=== PATIENT | male | born 1965 | race Caucasian/White ===

== ENCOUNTER 2017-03-25 11:10 | Inpatient (IN) | payer OTHER ==
[~2017-03-25] VITALS: Ht 177.8 cm; Wt 86.2 kg
--- NOTE | ~2017-03-25 | EKG ---
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 : 1965 Requested By: Divya March Order Number: [id number] MD: Abelardo Ribeiro Measurements Intervals [place] Rate: 96 P: 59 ID: [id number] QRS: 35 QRSD: 103 T: 13 QT: 364 QTc: 460 Interpretive Statements Sinus rhythm with premature ventricular complex Left atrial enlargement Probable anteroseptal infarct, age indeterminate Compared to ECG 07/22/2016 18:52:23 PBC is now present Electronically Signed On 03-26-2017 8:40:04 CDT by Abelardo Ribeiro [email or web address] <ELECTRONICALLY SIGNED> By: Abelardo Ribeiro MD, [facility] 03/26/17 0840 1119 [id number] Abelardo Ribeiro MD, [facility] /EPI
[~2017-03-25 11:10] MED LIST: CATAPRES0.1 MG PO; METOPROLOL SUCC50 MG PO
[2017-03-25 11:18] VITALS: BP 162/90
[2017-03-25 12:04] LABS: ABSOLUTE NEUTROPHILS 3.3 thou/uL (1.4-8.2); BASOPHILS 1.4 % (0.0-2.0); EOSINOPHILS 2.1 % (0.0-3.0); HEMOGLOBIN 15.2 gm/dL (14.0-18.0); LYMPHOCYTES 27.7 % (24.0-44.0); MCH 31.2 pg (26.0-34.0); MCHC 35.3 g/dL (28.0-37.0); MCV 88.4 fL (80.0-100.0); PLATELET COUNT 272 thou/uL (150-400); POLYS 56.8 % (36.0-66.0); RBC 4.86 mil/uL (4.50-6.00); RDW 16.2 % (10.5-14.5); WBC 5.8 thou/uL (4.0-11.0)
[2017-03-25 12:05] LABS: MANUAL DIFF NO
[2017-03-25 12:07] LABS: CALCIUM 10.6 mg/dL (8.5-10.1); CREATININE 0.9 mg/dL (0.7-1.3); MAGNESIUM 1.5 mg/dL (1.8-2.4); POTASSIUM 3.6 mmol/L (3.5-5.1)
[2017-03-25 15:00] VITALS: BP 152/104
[2017-03-25 21:21] VITALS: BP 163/90
[2017-03-26 01:13] VITALS: BP 170/105
[2017-03-26 08:00] VITALS: BP 152/108
[2017-03-26 11:06] VITALS: BP 138/98
[2017-03-26 15:31] VITALS: BP 146/104
[2017-03-26 19:30] VITALS: BP 138/102
[2017-03-27] VITALS (8 sets, daily range): BP systolic 142–183; BP diastolic 99–117
[2017-03-28 04:16] VITALS: BP 162/113
[2017-03-28 06:05] LABS: AMP/METHAMP Negative (Negative); BARBITURATES POSITIVE (Negative); BENZODIAZEPINES POSITIVE (Negative); COCAINE Negative (Negative); METHADONE Negative (Negative); OPIATES Negative (Negative); PCP Negative (Negative); THC Negative (Negative)
[2017-03-28 06:17] LABS: CREATININE 0.9 mg/dL (0.7-1.3); MAGNESIUM 1.6 mg/dL (1.8-2.4); POTASSIUM 3.3 mmol/L (3.5-5.1)
[2017-03-28 06:21] LABS: CALCIUM 8.6 mg/dL (8.5-10.1)
[2017-03-28 07:08] VITALS: BP 169/97
[2017-03-28] MEDS ORDERED: CATAPRES0.2 MG PO (11:09)
[2017-03-28] MEDS ORDERED: CHLORDIAZEPOXID25 M1 PO (11:10)
[2017-03-28] MEDS ORDERED: VITAMIN B-1100 M2 PO (11:10)
[2017-03-28 11:21] VITALS: BP 169/97
== END 2017-03-28 13:38 | disposition home or self-care (01) | DRG 897 ==
LOC: ER 11:10 → EROBS 13:59 → 4W 13:59
PROVIDERS: Emergency Medicine; Hospitalist
DX: F10.231 Alcohol dependence with withdrawal delirium (principal); I10 Essential (primary) hypertension; F31.9 Bipolar disorder, unspecified; F41.9 Anxiety disorder, unspecified; F12.90 Cannabis use, unspecified, uncomplicated; F17.210 Nicotine dependence, cigarettes, uncomplicated; Y90.0 Blood alcohol level of less than 20 mg/100 ml; Z59.0 Homelessness; Z79.899 Other long term (current) drug therapy
CPT/HCPCS: 10045

== ENCOUNTER 2018-02-15 15:03 | Inpatient (IN) | payer OTHER ==
[2018-02-15] VITALS (30 sets, daily range): BP systolic 110–154; BP diastolic 69–108
[~2018-02-15] VITALS: Ht 177.8 cm; Wt 93.0 kg
[~2018-02-15 15:03] MED LIST changes: +CATAPRES0.2 MG PO; +CHLORDIAZEPOXID25 M1 PO; +VITAMIN B-1100 M2 PO
[2018-02-15 15:55] LABS: BASOPHILS 0.8 % (0.0-2.0); EOSINOPHILS 0.7 % (0.0-3.0); HEMATOCRIT 40.6 % (42.0-52.0); HEMOGLOBIN 14.1 gm/dL (14.0-18.0); LYMPHOCYTES 20.1 % (24.0-44.0); MCH 29.4 pg (26.0-34.0); MCHC 34.9 g/dL (28.0-37.0); MCV 84.3 fL (80.0-100.0); MONOCYTES 5.4 % (1.0-8.0); PLATELET COUNT 179 thou/uL (150-400); RBC 4.81 mil/uL (4.50-6.00); RDW 13.4 % (10.5-14.5); WBC 13.8 thou/uL (4.0-11.0)
[2018-02-15 16:03] LABS: CALCIUM 8.2 mg/dL (8.5-10.1)
[2018-02-15 16:06] LABS: POTASSIUM 2.9 mmol/L (3.5-5.1)
[2018-02-15 16:09] LABS: ALBUMIN 3.4 g/dL (3.4-5.0); DIRECT BILIRUBIN 0.3 mg/dL (<0.1-0.3); TOTAL BILIRUBIN 1.1 mg/dL (<0.1-1.0); TOTAL PROTEIN 6.3 g/dL (6.4-8.2)
[2018-02-15 16:43] LABS: PHOSPHORUS 2.7 mg/dL (2.5-4.9)
[2018-02-15 17:11] LABS: FOLIC ACID 14.5 ng/mL (8.6-58.9)
[2018-02-16] VITALS (41 sets, daily range): BP systolic 129–174; BP diastolic 76–109
[2018-02-16 01:31] LABS: URINE BILIRUBIN NEGATIVE (Negative); URINE BLOOD 1+ (Negative); URINE CLARITY CLEAR; URINE COLOR YELLOW; URINE GLUCOSE-RANDOM* NEGATIVE (Negative); URINE KETONES TRACE (Negative); URINE LEUKOCYTES NEGATIVE (Negative); URINE NITRITE NEGATIVE (Negative); URINE PROTEIN (DIPSTICK) 1+ (Negative); URINE UROBILINOGEN 0.2 E.U./dl (0.2-1.0)
[2018-02-16 01:38] LABS: BACTERIA None Seen /HPF (None Seen); CASTS None Seen /LPF (None Seen); CRYSTALS None Seen /LPF (None Seen); MUCUS 0-3 Light strn/LPF (None Seen); SQUAMOUS None Seen /LPF (0-3); URINE RBC 0-2 Rare /HPF (0-2); URINE WBC None Seen /HPF (0-5)
[2018-02-16 01:39] LABS: AMP/METHAMP Negative (Negative); BARBITURATES Negative (Negative); BENZODIAZEPINES Negative (Negative); COCAINE Negative (Negative); METHADONE Negative (Negative); OPIATES Negative (Negative); PCP Negative (Negative)
[2018-02-16 04:39] LABS: ABSOLUTE NEUTROPHILS 9.3 thou/uL (1.4-8.2); EOSINOPHILS 1.7 % (0.0-3.0); HEMATOCRIT 40.9 % (42.0-52.0); LYMPHOCYTES 15.6 % (24.0-44.0); MCH 29.4 pg (26.0-34.0); MCHC 34.2 g/dL (28.0-37.0); MCV 86.1 fL (80.0-100.0); PLATELET COUNT 153 thou/uL (150-400); POLYS 76.7 % (36.0-66.0); RBC 4.76 mil/uL (4.50-6.00); WBC 12.1 thou/uL (4.0-11.0)
[2018-02-16 04:52] LABS: CALCIUM 8.4 mg/dL (8.5-10.1); CREATININE 0.9 mg/dL (0.7-1.3); POTASSIUM 3.4 mmol/L (3.5-5.1)
[2018-02-17] VITALS (14 sets, daily range): BP systolic 139–167; BP diastolic 84–102
[2018-02-17 03:54] LABS: CALCIUM 8.2 mg/dL (8.5-10.1); CREATININE 0.7 mg/dL (0.7-1.3); MAGNESIUM 1.6 mg/dL (1.8-2.4); PHOSPHORUS 1.9 mg/dL (2.5-4.9); POTASSIUM 3.1 mmol/L (3.5-5.1)
== END 2018-02-17 14:25 | disposition left against medical advice (07) | DRG 101 ==
LOC: ER 15:03 → ICU 15:55 → EROBS 15:55 → 4E 16:53 → ICU 16:58
PROVIDERS: Emergency Medicine; Family Medicine
DX: R56.9 Unspecified convulsions (principal); F10.221 Alcohol dependence with intoxication delirium; F10.231 Alcohol dependence with withdrawal delirium; I10 Essential (primary) hypertension; F17.210 Nicotine dependence, cigarettes, uncomplicated; F31.9 Bipolar disorder, unspecified; F41.9 Anxiety disorder, unspecified; E87.6 Hypokalemia; Z53.21 Procedure and treatment not carried out due to patient leaving prior to being seen by health care provider; Z91.19 Patient's noncompliance with other medical treatment and regimen; Z59.0 Homelessness
CPT/HCPCS: 10203

== ENCOUNTER 2019-10-28 15:24 | Emergency (ER) | payer OTHER ==
[~2019-10-28] VITALS: Ht 177.8 cm; Wt 95.3 kg
[2019-10-28 16:12] LABS: HEMATOCRIT 47.4 % (42.0-52.0); HEMOGLOBIN 16.2 gm/dL (14.0-18.0); MCH 29.8 pg (26.0-34.0); MCHC 34.2 g/dL (28.0-37.0); MCV 87.3 fL (80.0-100.0); RBC 5.42 mil/uL (4.50-6.00); RDW 13.3 % (10.5-14.5); WBC 11.6 thou/uL (4.0-11.0)
[2019-10-28 16:14] LABS: ANION GAP 8 mmol/L (7-16); BUN 13 mg/dL (7-18); CALCIUM 9.1 mg/dL (8.5-10.1); CHLORIDE 107 mmol/L (98-107); CO2 24 mmol/L (21-32); GLUCOSE 111 mg/dL (74-106); POTASSIUM 3.5 mmol/L (3.5-5.1); SODIUM 139 mmol/L (136-145)
[2019-10-28 16:19] LABS: ALBUMIN 4.2 g/dL (3.4-5.0); DIRECT BILIRUBIN < 0.1 mg/dL (<0.1-0.2); SGOT 24 U/L (15-37); SGPT 33 U/L (30-65); TOTAL BILIRUBIN 0.4 mg/dL (<0.1-1.0); TOTAL PROTEIN 7.7 g/dL (6.4-8.2)
[2019-10-28 16:27] LABS: AMP/METHAMP Negative (Negative); BARBITURATES Negative (Negative); BENZODIAZEPINES Negative (Negative); COCAINE Negative (Negative); METHADONE Negative (Negative); OPIATES Negative (Negative); PCP Negative (Negative)
[2019-10-29 16:45] VITALS: BP 154/98
== END 2019-10-29 17:08 | disposition psychiatric hospital, planned readmission (93) ==
LOC: ER 15:24
PROVIDERS: Emergency Medicine
DX: R45.851 Suicidal ideations (principal); I10 Essential (primary) hypertension; F31.9 Bipolar disorder, unspecified; F17.210 Nicotine dependence, cigarettes, uncomplicated

== ENCOUNTER 2020-03-01 14:35 | Emergency (ER) | payer OTHER ==
[~2020-03-01] VITALS: Ht 177.8 cm; Wt 93.0 kg
[2020-03-01 15:05] LABS: ABSOLUTE NEUTROPHILS 11.5 thou/uL (1.4-8.2); BASOPHILS 0.8 % (0.0-2.0); EOSINOPHILS 0.4 % (0.0-3.0); HEMATOCRIT 47.2 % (42.0-52.0); HEMOGLOBIN 16.6 gm/dL (14.0-18.0); LYMPHOCYTES 20.2 % (24.0-44.0); MCH 30.4 pg (26.0-34.0); MCHC 35.1 g/dL (28.0-37.0); MCV 86.6 fL (80.0-100.0); MONOCYTES 5.2 % (1.0-8.0); PLATELET COUNT 276 thou/uL (150-400); POLYS 73.4 % (36.0-66.0); RBC 5.45 mil/uL (4.50-6.00); RDW 13.7 % (10.5-14.5); WBC 15.7 thou/uL (4.0-11.0)
[2020-03-01 15:12] LABS: URINE BILIRUBIN NEGATIVE (Negative); URINE BLOOD 1+ (Negative); URINE CLARITY CLEAR; URINE COLOR YELLOW; URINE GLUCOSE-RANDOM* NEGATIVE (Negative); URINE KETONES 1+ (Negative); URINE LEUKOCYTES-REFLEX NEGATIVE (Negative); URINE NITRITE-REFLEX NEGATIVE (Negative); URINE PROTEIN (DIPSTICK) 2+ (Negative); URINE SPECIFIC GRAVITY >= 1.030 (1.005-1.035); URINE UROBILINOGEN 0.2 E.U./dl (0.2-1.0)
[2020-03-01 15:14] LABS: ANION GAP 15 mmol/L (7-16); BUN 29 mg/dL (7-18); CHLORIDE 106 mmol/L (98-107); CO2 22 mmol/L (21-32); CREATININE 1.1 mg/dL (0.7-1.3); GLUCOSE 105 mg/dL (74-106); POTASSIUM 3.4 mmol/L (3.5-5.1); SODIUM 143 mmol/L (136-145)
[2020-03-01 15:20] LABS: AMP/METHAMP Negative (Negative); BARBITURATES Negative (Negative); BENZODIAZEPINES Negative (Negative); COCAINE Negative (Negative); METHADONE Negative (Negative); OPIATES Negative (Negative); PCP Negative (Negative); URINE RBC 0-2 Rare /HPF (0-2)
[2020-03-01 15:21] LABS: BACTERIA-REFLEX 1-9 Few /HPF (None Seen); CRYSTALS None Seen /LPF (None Seen); HYALINE CASTS 0-3 Few /LPF (None Seen); SQUAMOUS 0-3 Few /LPF (0-3); URINE WBC-REFLEX None Seen /HPF (0-5)
[2020-03-01 15:23] LABS: ALBUMIN 3.8 g/dL (3.4-5.0); SGOT 44 U/L (15-37); SGPT 45 U/L (30-65); TOTAL BILIRUBIN 0.6 mg/dL (<0.1-1.0); TOTAL PROTEIN 7.1 g/dL (6.4-8.2); TROPONIN-I <0.06 ng/mL (<0.06)
[2020-03-01 16:24] VITALS: BP 163/83
== END 2020-03-01 16:24 | disposition home or self-care (01) ==
LOC: ER 14:35
PROVIDERS: Nurse Practitioner Family
DX: S09.90XA Unspecified injury of head, initial encounter (principal); F10.920 Alcohol use, unspecified with intoxication, uncomplicated; R41.82 Altered mental status, unspecified; I10 Essential (primary) hypertension; F31.9 Bipolar disorder, unspecified; F17.210 Nicotine dependence, cigarettes, uncomplicated; W21.03XA Struck by baseball, initial encounter; Y93.89 Activity, other specified; Y92.89 Other specified places as the place of occurrence of the external cause; Y99.8 Other external cause status

== ENCOUNTER 2020-03-01 18:49 | Emergency (ER) | payer OTHER ==
[~2020-03-01] VITALS: Ht 152.4 cm; Wt 93.0 kg
[2020-03-01 20:14] VITALS: BP 144/83
--- NOTE | 2020-03-02 08:07 | EKG ---
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 : 1965 Requested By: Teresa Forbes Order Number: [id number] MD: Ko Whaley Measurements Intervals [place] Rate: 91 P: 34 [place]: 184 QRS: -8 QRSD: 101 T: 9 QT: 357 QTc: 440 Interpretive Statements Sinus rhythm Left atrial enlargement Probable anteroseptal infarct, recent Baseline wander in lead(s) V3 Compared to ECG 03/25/2017 11:19:55 Ventricular premature complex(es) no longer present Myocardial infarct finding still present Electronically Signed On 03-02-2020 8:05:39 CDT by Ko Whaley [email or web address] <ELECTRONICALLY SIGNED> By: Ko Whaley MD 03/02/20804 57 57 Ko Whaley MD /EPI
== END 2020-03-01 20:21 | disposition home or self-care (01) ==
LOC: ER 18:49
DX: F10.239 Alcohol dependence with withdrawal, unspecified (principal); F41.0 Panic disorder [episodic paroxysmal anxiety]; R06.00 Dyspnea, unspecified; R41.82 Altered mental status, unspecified; I10 Essential (primary) hypertension; F31.9 Bipolar disorder, unspecified; F17.210 Nicotine dependence, cigarettes, uncomplicated; Z59.0 Homelessness

== ENCOUNTER 2020-03-22 22:59 | Emergency (ER) | payer OTHER ==
[~2020-03-22] VITALS: Ht 177.8 cm; Wt 95.3 kg
[2020-03-23 00:07] VITALS: BP 120/61
== END 2020-03-23 00:08 ==
LOC: ER 22:59
DX: F41.9 Anxiety disorder, unspecified (principal); I10 Essential (primary) hypertension; F17.210 Nicotine dependence, cigarettes, uncomplicated

== ENCOUNTER 2020-04-15 17:12 | Emergency (ER) | payer OTHER ==
[~2020-04-15] VITALS: Ht 177.8 cm; Wt 95.3 kg
[2020-04-15 17:29] LABS: ABSOLUTE NEUTROPHILS 9.1 thou/uL (1.4-8.2); BASOPHILS 0.9 % (0.0-2.0); EOSINOPHILS 0.8 % (0.0-3.0); HEMATOCRIT 48.6 % (42.0-52.0); HEMOGLOBIN 16.7 gm/dL (14.0-18.0); MCH 30.8 pg (26.0-34.0); MCHC 34.4 g/dL (28.0-37.0); MCV 89.7 fL (80.0-100.0); MONOCYTES 6.2 % (1.0-8.0); PLATELET COUNT 311 thou/uL (150-400); POLYS 73.1 % (36.0-66.0); RBC 5.42 mil/uL (4.50-6.00); RDW 14.3 % (10.5-14.5); WBC 12.5 thou/uL (4.0-11.0)
[2020-04-15 17:37] LABS: ANION GAP 13 mmol/L (7-16); BUN 21 mg/dL (7-18); CALCIUM 8.5 mg/dL (8.5-10.1); CHLORIDE 105 mmol/L (98-107); CO2 23 mmol/L (21-32); CREATININE 1.1 mg/dL (0.7-1.3); GLUCOSE 96 mg/dL (74-106); POTASSIUM 3.7 mmol/L (3.5-5.1); SODIUM 141 mmol/L (136-145)
[2020-04-15 17:46] LABS: ALBUMIN 4.1 g/dL (3.4-5.0); DIRECT BILIRUBIN < 0.1 mg/dL (<0.1-0.2); SALICYLATE 5.1 mg/dL (2.8-20.0); SGOT 39 U/L (15-37); SGPT 36 U/L (30-65); TOTAL BILIRUBIN 0.5 mg/dL (0.2-1.0); TOTAL PROTEIN 7.3 g/dL (6.4-8.2); TROPONIN-I <0.06 ng/mL (<0.06)
[2020-04-15 19:51] VITALS: BP 141/63
--- NOTE | 2020-04-16 09:46 | EKG ---
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[facility] : 1965 Requested By: Divya March Order Number: [id number] MD: Abelardo Ribeiro Measurements Intervals [place] Rate: 83 P: 41 [place]: 182 QRS: 20 QRSD: 92 T: 14 QT: 394 QTc: 463 Interpretive Statements Sinus rhythm Anteroseptal infarct, old Borderline repolarization abnormality Baseline wander in lead(s) I,V1 Compared to ECG 03/01/2020 18:58:06 No significant change was found Electronically Signed On 04-16-2020 9:46:10 CDT by Abelardo Ribeiro [email or web address] <ELECTRONICALLY SIGNED> By: Abelardo Ribeiro MD, [facility] 04/16/20 0946 1727 172 Abelardo Ribeiro MD, [facility] /EPI
== END 2020-04-15 19:55 | disposition home or self-care (01) ==
LOC: ER 17:12
PROVIDERS: Emergency Medicine
DX: R41.0 Disorientation, unspecified (principal); F31.9 Bipolar disorder, unspecified; F17.210 Nicotine dependence, cigarettes, uncomplicated; I10 Essential (primary) hypertension; Z59.0 Homelessness

== ENCOUNTER 2020-04-16 07:07 | Emergency (ER) | payer OTHER ==
--- NOTE | ~2020-04-16 | EMS ---
[facility] [address] [place] [address] EMS Patient Care Report Name: JOHNNY NARAYANAN Room #: REG M.R.#: [id number] Admission: 04/16/20 Attend Phys: Discharge: Date of : 65 Report #: [id number] THIS REPORT FOR: //name// Report Transmitted: 04/16/2020 06:[address] [facility] Incident [id number] @ 04/16/2020 06:41 Incident Location [address] [place] [address] Patient JOHNNY NARAYANAN Male, 54 Years 1965 Patient Address Patient History Alcohol Abuse, Patient Allergies No known allergies, Patient Medications None Reported, Chief Complaint I need to go to [place] Disposition Transported No Lights/[place] Reason Convulsions/Seizure Transported To [facility] Narrative Arrived to find pt standing on the sidewalk in the downp[place] talking with [facility] personnel. Pt reported that he "was just at [place]" and "needs to go to [place]". Pt states that he "thinks" he had a seizure but is unsure and reports drinking " a lot". Pt states that he "met a girl on line and it didn't go so well" so he [facility] [address] [place] [address] EMS Patient Care Report Name: JOHNNY NARAYANAN Room #: REG Shalini#: [id number] Admission: 04/16/20 Attend Phys: Discharge: Date of : 65 Report #: [id number] started drinking again. Pt states he [facility]. Pt is unable to recall how he got to this location but remembers leaving the hospital and getting something to drink and sleeping in the green. Pt states he "needs help" and EMS stated they would take him back to [place] where he was previous treated. Pt offered no other complaints. Pt willingly walked to the MICU and onto the cot. Pt secured with cot straps and transported across the street to [place]. Pt condition remained unchanged. Pt was able to self-transfer from cot to hospital bed without incident. Pt report and transfer of care given to [facility] room #7. Initial Vitals @06:53P: 84,R: 20,BP: 184/89,Pain: 0/10,GCS: 14,SpO2: 98,Revised Trauma: 12, Assessments @06:53MENTAL:Person Oriented,Time Oriented,Place Oriented,SKIN:HEENT:LUNG SOUNDS:General: No Abnormalities,ABDOMEN:General: No Abnormalities,PELVIS//GI:No Abnormalities,EXTREMITIES:Left Arm: No Abnormalities,Right Arm: No Abnormalities,Left Leg: No Abnormalities,Right Leg: No Abnormalities,PULSE:Radial: 2+ Normal,NEURO:No Abnormalities, Impression No Complaints or Injury/Illness Noted Timeline 06:38,Call Received 06:38,Psap Call 06:41,Dispatched 06:43,En Route 06:50,On Scene 06:51,At Patient 06:53,BP: 184/89 M,PULSE: 84,RR: 20 R,SPO2: 98 Ox,ETCO2: ,BG: ,PAIN: 0,GCS: 14, 06:56,Depart Scene 06:59,At Destination 07:10,Call Closed Disclaimer v1.1 Copyright 2020 [employer] This EMS Care Summary contains data elements from the applicable legal record (which may be displayed differently). It is designed to provide pertinent information for the following purposes: continuity of care, clinical quality, [address] [address] EMS Patient Care Report Name: ORACIOJOHNNY Room #: REG CAROLANN Loya#: [id number] Admission: 04/16/20 Attend Phys: Discharge: Date of : 65 Report #: [id number] and state data reporting. The complete legal record is available to ED staff and administrators of the receiving hospital in [employer] Patient Tracker. All data is provided "as is."
== END 2020-04-16 07:30 | disposition left against medical advice (07) ==
LOC: ER 07:07
DX: F10.920 Alcohol use, unspecified with intoxication, uncomplicated (principal); Z00.8 Encounter for other general examination; I10 Essential (primary) hypertension; F31.9 Bipolar disorder, unspecified; F17.210 Nicotine dependence, cigarettes, uncomplicated

== ENCOUNTER 2020-04-17 21:33 | Emergency (ER) | payer OTHER ==
[~2020-04-17] VITALS: Ht 177.8 cm; Wt 95.3 kg
[2020-04-17 21:34] VITALS: BP 137/87
== END 2020-04-17 23:28 | disposition home or self-care (01) ==
LOC: ER 21:33
DX: R53.1 Weakness (principal); Z71.1 Person with feared health complaint in whom no diagnosis is made; I10 Essential (primary) hypertension; F31.9 Bipolar disorder, unspecified; F17.210 Nicotine dependence, cigarettes, uncomplicated

== ENCOUNTER 2020-04-19 21:38 | Emergency (ER) | payer OTHER ==
[~2020-04-19] VITALS: Ht 177.8 cm; Wt 95.3 kg
[2020-04-19 22:38] LABS: ABSOLUTE NEUTROPHILS 11.9 thou/uL (1.4-8.2); BASOPHILS 0.5 % (0.0-2.0); EOSINOPHILS 0.2 % (0.0-3.0); HEMATOCRIT 45.2 % (42.0-52.0); HEMOGLOBIN 15.7 gm/dL (14.0-18.0); MCHC 34.8 g/dL (28.0-37.0); MCV 89.1 fL (80.0-100.0); MONOCYTES 5.4 % (1.0-8.0); PLATELET COUNT 242 thou/uL (150-400); POLYS 82.9 % (36.0-66.0); RBC 5.08 mil/uL (4.50-6.00); WBC 14.4 thou/uL (4.0-11.0)
[2020-04-19 22:50] LABS: ANION GAP 13 mmol/L (7-16); BUN 21 mg/dL (7-18); CALCIUM 9.6 mg/dL (8.5-10.1); CHLORIDE 106 mmol/L (98-107); CO2 25 mmol/L (21-32); CREATININE 1.8 mg/dL (0.7-1.3); GLUCOSE 112 mg/dL (74-106); POTASSIUM 3.8 mmol/L (3.5-5.1); SODIUM 144 mmol/L (136-145)
[2020-04-19 23:03] LABS: ALBUMIN 3.7 g/dL (3.4-5.0); SGOT 65 U/L (15-37); SGPT 87 U/L (30-65); TOTAL BILIRUBIN 0.8 mg/dL (0.2-1.0); TROPONIN-I <0.06 ng/mL (<0.06)
[2020-04-20 00:11] VITALS: BP 111/85
--- NOTE | 2020-04-20 08:11 | EKG ---
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1965 Requested By: Carrie Baca Order Number: [id number] MD: Abelardo Ribeiro Measurements Intervals [place] Rate: 109 P: 72 NC: 174 QRS: 47 QRSD: 86 T: -90 QT: 329 QTc: 444 Interpretive Statements Sinus tachycardia Probable LVH with secondary repol abnrm Baseline wander in lead(s) V3 Compared to ECG 04/15/2020 17:27:52 Atrial abnormality now present Left ventricular hypertrophy now present Electronically Signed On 04-20-2020 8:11:12 CDT by Abelardo Ribeiro [email or web address] <ELECTRONICALLY SIGNED> By: Abelardo Ribeiro MD, [facility] 04/20/20 08 45 45 Abelardo Ribeiro MD, [facility] /EPI
== END 2020-04-20 00:12 | disposition home or self-care (01) ==
LOC: ER 21:38
PROVIDERS: Student in an Organized Health Care Education/Training Program
DX: F10.920 Alcohol use, unspecified with intoxication, uncomplicated (principal); R07.9 Chest pain, unspecified; R06.02 Shortness of breath; I10 Essential (primary) hypertension; F31.9 Bipolar disorder, unspecified; F17.210 Nicotine dependence, cigarettes, uncomplicated